=== PATIENT | male | born 1955 ===

== ENCOUNTER 2017-12-26 23:15 | Emergency (ER) | payer MEDICAID, OTHER, SELFPAY ==
[2017-12-26 23:56] VITALS: TEMP 97.3
[2017-12-27] MEDS ORDERED: Sodium Chloride 0.9% 1,000 ML IV STA (00:23)
--- NOTE | 2017-12-27 00:43 | ED PDOC ---
HPI: Abdomen Time Seen by Provider: 12/27/17 00:03 Chief Complaint (Nursing): Abdominal Pain Chief Complaint (Provider): Abdominal Pain History Per: Patient History/Exam Limitations: no limitations Onset/Duration Of Symptoms: Hrs (x8) Current Symptoms Are (Timing): Still Present Additional Complaint(s): Shiva Marroquin, a 62 year old male with a past medical history of hypertension and dyslipidemia, presents to the ED complaining of abdominal pain onset x8 hours associated with nausea and multiple episodes of vomiting. He states the vomit is nonbilious and non-bloody Patient reports pain began after eating chicken and has become progressively worse. He denies diarrhea. PCP: Rob Kennedy Past Medical History Reviewed: Historical Data, Nursing Documentation, Vital Signs Vital Signs: Last Vital Signs Temp 97.3 F L 12/26/17 23:53 Pulse 72 12/26/17 23:53 Resp 17 12/26/17 23:53 BP 181/115 H 12/26/17 23:53 Pulse Ox 100 12/26/17 23:53 - Medical History PMH: HTN Other PMH: dyslipidemia - Surgical History Other surgeries: kidney surgery - Family History Family History: States: Unknown Family Hx - Social History Current smoker - smoking cessation education provided: No Alcohol: None Drugs: Denies - Home Medications Home Medications: Ambulatory Orders Medication Instructions Recorded Ketorolac Tromethamine [Toradol] 10 mg PO Q6 PRN #19 tab 02/14/14 Famotidine [Pepcid] 20 mg PO Q12 #14 tab 12/27/17 Ondansetron ODT [Zofran ODT] 4 mg PO Q6H PRN #8 odt 12/27/17 - Allergies Allergies/Adverse Reactions: Allergies Allergy/AdvReac Type Severity Reaction Status Date / Time No Known Allergies Allergy Verified 12/12/15 05:21 Review of Systems ROS Statement: Except As Marked, All Systems Reviewed And Found Negative Gastrointestinal: Positive for: Nausea, Vomiting (nonbilious nonbloody). Negative for: Diarrhea Physical Exam - Reviewed Nursing Documentation Reviewed: Yes Vital Signs Reviewed: Yes - Physical Exam Appears: Positive for: Uncomfortable ENT: Positive for: Other (mucous membranes dry) Gastrointestinal/Abdominal: Positive for: Tenderness (epigastric and right upper quadrant) - Laboratory Results Result Diagrams: 12/27/17 00:40 12/27/17 00:40 - ECG O2 Sat by Pulse Oximetry: 100 (RA) Pulse Ox Interpretation: Normal Medical Decision Making Medical Decision Making: Time 0012 Initial Impression: 62 year old male with nausea and vomiting Initial Plan: --labs --Urine dipstick --UA --US gallbladder and pancreas --Zofran 4 mg IV --Toradol 15 mg IVP --Pepcid 20 mg IV --EKG 0318 -US gallbladder and pancreas Findings: The liver is normal in size measuring 13.8 cm. Smooth hepatic contour. Normal gallbladder with thickness measuring 2.5 cm. Negative sonographic Mejía. Multiple gallstones are noted. Nondilated common bile duct measuring 5.4 mm. Number visualization of the pancreas. Unremarkable IVC. Nonaneurysmal aorta measuring 1.5 cm. Unremarkable right kidney measuring 9.7x5.1x4.9 cm. 2.8x2.2x1.6 cm simple cyst is noted in the lower pole of the right kidney. Impression: No evidence of cholelithiasis or acute cholecystitis. Simple cyst of the lower pole of the right kidney. 0333 --labs were reviewed and showed no clinically significant abnormalities. Patient reports marked improvement in symptoms. Diagnosed with gastritis. Upon provider reevaluation patient is feeling better, is medically stable, and requires no further treatment in the ED at this time. Patient will be discharged home. Counseling was provided and all questions were answered regarding diagnosis. There is agreement to discharge plan. Return if symptoms persist or worsen. Scribe Attestation: Documented by Chon Wiggins, acting as a scribe for Harley Silver MD. Provider Scribe Attestation: All medical record entries made by the Scribe were at my direction and personally dictated by me. I have reviewed the chart and agree that the record accurately reflects my personal performance of the history, physical exam, medical decision making, and the department course for this patient. I have also personally directed, reviewed, and agree with the discharge instructions and disposition. Disposition - Clinical Impression Clinical Impression: Gastritis - Patient ED Disposition Is Patient to be Admitted: No - Disposition Disposition: Routine/Home Disposition Time: 03:33 Condition: STABLE Prescriptions: Famotidine [Pepcid] 20 mg PO Q12 #14 tab Ondansetron ODT [Zofran ODT] 4 mg PO Q6H PRN #8 odt PRN Reason: Nausea/Vomiting Instructions: Gastritis Forms: [facility] (Azerbaijani) Print Language: HUNGARIAN
[2017-12-27 01:01] LABS: BASO % 0.4 % (0.0-2.0); EOS # 0.1 K/uL (0.0-0.7); EOS % 0.7 % (0.0-4.0); HEMOGLOBIN 14.4 g/dL (12.0-18.0); LYMPH # 1.2 K/uL (1.0-4.3); LYMPH % 12.9 % (20.0-40.0); MEAN CELL VOLUME 91.4 fl (80.0-94.0); MEAN CORPUSCULAR HEMOGLOBIN 29.5 pg (27.0-31.0); MEAN CORPUSCULAR HGB CONC 32.3 g/dL (33.0-37.0); MEAN PLATELET VOLUME 10.1 fl (7.2-11.7); MONO # 0.5 K/uL (0.0-0.8); NEUT # 7.4 K/uL (1.8-7.0); RBC 4.89 Mil/uL (4.40-5.90); RED CELL DISTRIBUTION WIDTH 12.6 % (11.5-14.5); WHITE BLOOD COUNT 9.1 K/uL (4.8-10.8)
[2017-12-27 01:11] LABS: ALB/GLOB RATIO 1.2 (1.0-2.1); ALBUMIN 4.6 g/dL (3.5-5.0); ALT/SGPT 48 U/L (21-72); AST/SGOT 37 U/L (17-59); BLOOD UREA NITROGEN 16 mg/dl (9-20); CALCIUM 9.6 mg/dL (8.4-10.2); GFR NON-AFRICAN AMERICAN > 60; LIPASE 250 U/L (23-300)
[2017-12-27 02:26] LABS: SQUAMOUS EPITHIAL < 1 /hpf (0-5); URINE BILIRUBIN NEGATIVE (NEGATIVE); URINE BLOOD NEGATIVE (NEGATIVE); URINE CLARITY CLEAR (Clear); URINE COLOR YELLOW (YELLOW); URINE GLUCOSE (UA) NEG (Normal); URINE LEUKOCYTE ESTERASE NEG Leu/uL (Negative); URINE PROTEIN NEGATIVE (NEGATIVE); URINE UROBILINOGEN 0.2-1.0 mg/dL (0.2-1.0)
[2017-12-27 03:53] VITALS: BP 144/86; PULSE 80; RESP 20; O2SAT 98
--- NOTE | 2017-12-27 07:56 | US ---
Date of service: 12/27/2017 HISTORY: abd pain COMPARISON: CT abdomen and pelvis 01/15/2016 TECHNIQUE: Sonographic evaluation of the right upper quadrant of the abdomen. FINDINGS: LIVER: Measures 13.8 cm in length. Normal echogenicity of the liver parenchyma. No mass. No intrahepatic bile duct dilatation. GALLBLADDER: Multiple gallstones within the gallbladder present. No gallbladder wall thickening. Gallbladder wall 2.5 mm. No positive sonographic Mejía sign elicited. COMMON BILE DUCT: Measures 5.4 mm. No stones. No dilatation. PANCREAS: Unremarkable as visualized. No mass. No ductal dilatation. RIGHT KIDNEY: Measures 0.7 x 5.1 x 4.9 cm in length. Normal echogenicity. No calculus,, or hydronephrosis.. At the lower pole a simple appearing cyst measuring 2.8 x 2.2 x 1.6 cm in size is noted. This is compatible with the prior 2015 CT Hounsfield units and relative size than noted. AORTA: No aneurysmal dilatation. IVC: Unremarkable. OTHER FINDINGS: None . IMPRESSION: Cholelithiasis. No secondary acute cholecystitis sonographic findings suggested.. No pole benign simple cyst up to 2.8 cm Concordant results (preliminary interpretation) provided by [facility].
--- NOTE | 2017-12-27 12:43 | CARD ---
APPROVED REPORT Date of service: 12/27/2017 EKG Measurement Heart [id number] <Conclusion> Normal sinus rhythm Normal Electrocardiogram
== END 2017-12-27 03:52 | disposition home or self-care (01) ==
LOC: H.ER 23:15
DX: K29.70 Gastritis, unspecified, without bleeding (principal); E78.5 Hyperlipidemia, unspecified; I10 Essential (primary) hypertension; K80.20 Calculus of gallbladder without cholecystitis without obstruction; N28.1 Cyst of kidney, acquired; Z79.899 Other long term (current) drug therapy
CPT/HCPCS: 76705; 80053; 81003; 83690; 85025; 93005; 96361; 96374; 96375; 99283; J1885; J2405; J7030